=== PATIENT | male | born 1990 ===

== ENCOUNTER 2017-11-16 14:52 | Emergency (ER) | payer SELFPAY ==
[2017-11-16 14:53] VITALS: BMI 23.6
[2017-11-16 15:00] VITALS: BP 129/81; PULSE 65; RESP 18; TEMP 98.5; O2SAT 98
--- NOTE | 2017-11-16 15:48 | RAD ---
Date of service: 11/16/2017 PROCEDURE: Radiographs of the Right Shoulder HISTORY: shoulder pain COMPARISON: No prior. FINDINGS: BONES: Normal. No fracture. JOINTS: Normal. Glenohumeral and acromioclavicular joints preserved. No osteoarthritis. SOFT TISSUES: Normal. OTHER FINDINGS: None. IMPRESSION: Normal radiographs of the right shoulder.
--- NOTE | 2017-11-16 16:05 | C.PDOC ---
History Of Present Illness 27 year old male presents to the ED for evaluation of right shoulder pain for the last 3 weeks. Patient states he lifted a heavy object resulting in shoulder pain and pain is reproducible with movement. Denies direct trauma to the shoulder, fever, intravenous drug abuse, and any other associated symptoms. Time Seen by Provider: 11/16/17 15:22 Chief Complaint (Nursing): Upper Extremity Problem/Injury History Per: Patient History/Exam Limitations: no limitations Onset/Duration Of Symptoms: Days Current Symptoms Are (Timing): Still Present Past Medical History Reviewed: Historical Data, Nursing Documentation, Vital Signs Vital Signs: Last Vital Signs Temp 98.5 F 11/16/17 14:58 Pulse 65 11/16/17 14:58 Resp 18 11/16/17 14:58 BP 129/81 11/16/17 14:58 Pulse Ox 98 11/16/17 14:58 - [facility] Procedures APPLICATION OF SPLINT (10/04/14) OP RED-INT FIX METAC/CAR (10/12/14) Family History: States: Unknown Family Hx - Social History Hx Alcohol Use: Yes Hx Substance Use: No - Immunization History Hx Tetanus Toxoid Vaccination: No Hx Influenza Vaccination: No Hx Pneumococcal Vaccination: No Review Of Systems Except As Marked, All Systems Reviewed And Found Negative. Musculoskeletal: Positive for: Shoulder Pain (right. ) Physical Exam - Physical Exam Appears: Non-toxic, No Acute Distress Skin: Normal Color, Warm, Dry Head: Atraumatic, Normacephalic Eye(s): bilateral: Normal Inspection, PERRL, EOMI Nose: Normal Oral Mucosa: Moist Neck: Normal ROM, Supple Chest: Symmetrical Cardiovascular: Rhythm Regular, No Murmur Respiratory: Normal Breath Sounds, No Rales, No Rhonchi, No Wheezing Gastrointestinal/Abdominal: Normal Exam, Soft, No Tenderness Extremity: Normal ROM (x4), Tenderness (to the right anterior shoulder.), Capillary Refill (less than 2 seconds to the right shoulder.), Other (normal color and temperature. atraumatic. no other joint movement. ) Pulses: Left Radial: Normal, Right Radial: Normal Neurological/Psych: Oriented x3, Normal Speech, Normal Motor, Normal Sensation, Normal Reflexes Gait: Steady ED Course And Treatment O2 Sat by Pulse Oximetry: 98 (RA) Pulse Ox Interpretation: Normal - Other Rad X-ray RT Shoulder X-Ray: Viewed By Me, Read By Radiologist Interpretation: FINDINGS: BONES: Normal. No fracture. JOINTS: Normal. Glenohumeral and acromioclavicular joints preserved. No osteoarthritis. SOFT TISSUES: Normal. OTHER FINDINGS: None. IMPRESSION: Normal radiographs of the right shoulder. Medical Decision Making Medical Decision Making: Plan: --Given Ibuprofen. --X-ray RT Shoulder Progress/Update: X-ray viewed by me and appear normal. Right shoulder splint. Patient refused sling. Prescribed with Naproxen and advised to follow up with PMD within 2 days. Disposition Counseled Patient/Family Regarding: Studies Performed, Diagnosis, Need For Followup, Rx Given - Disposition Referrals: [facility] [Outside] Disposition: HOME/ ROUTINE Disposition Time: 16:03 Condition: STABLE Additional Instructions: follow up with your doctor or medical clinic within 2 days call to make an appointment take medications as prescribed return to ER if symptoms worsens or progress Prescriptions: Naproxen [Naprosyn] 500 mg PO BID PRN #16 tab PRN Reason: Pain, Moderate (4-7) Instructions: Shoulder Sprain (DC) Forms: [facility] (M[place]itanian), General Discharge Instructions - Clinical Impression Clinical Impression: Sprain - Scribe Statement The provider has reviewed the documentation as recorded by the Scribe (Sara Duran) Provider Attestation: All medical record entries made by the Scribe were at my direction and personally dictated by me. I have reviewed the chart and agree that the record accurately reflects my personal performance of the history, physical exam, medical decision making, and the department course for this patient. I have also personally directed, reviewed, and agree with the discharge instructions and disposition.
== END 2017-11-16 16:13 | disposition home or self-care (01) ==
LOC: C.ER 14:52
DX: S43.401A Unspecified sprain of right shoulder joint, initial encounter (principal); X50.0XXA Overexertion from strenuous movement or load, initial encounter